=== PATIENT | male | born 1970 | race Caucasian/White ===

== ENCOUNTER 2022-04-30 14:15 | Outpatient (REF) | payer OTHER, SELFPAY ==
[2022-04-30 14:37] LABS: Binax Now Covid-19 Ag Positive (Negative)
[2022-04-30 14:38] LABS: Binax Internal Control QC Valid
== END 2022-04-30 14:16 | disposition home or self-care (01) ==
LOC: HO.HMGCLDS 14:15
PROVIDERS: Visit Provider Internal Medicine
DX: J06.9 Acute upper respiratory infection, unspecified (principal)
CPT/HCPCS: 87811; C9803